=== PATIENT | male | born 1960 | race Two or more races ===

== ENCOUNTER 2018-08-12 16:00 | Outpatient (CLI) | payer OTHER | END 2018-08-12 16:11 | disposition home or self-care (01) | LOC: RAD 16:00 | DX: Z01.811 Encounter for preprocedural respiratory examination (principal) ==

== ENCOUNTER 2018-08-15 09:12 | Outpatient (CLI) | payer OTHER | END 2018-08-15 09:22 | disposition home or self-care (01) | LOC: EKG 09:12 | DX: Z01.810 Encounter for preprocedural cardiovascular examination (principal) ==

== ENCOUNTER → 2018-12-05 | Outpatient (CLI) | payer OTHER | END | disposition home or self-care (01) | LOC: SONOGRAMA 10:59 | DX: E04.2 Nontoxic multinodular goiter (principal) ==

== ENCOUNTER → 2018-12-08 | Outpatient (CLI) | payer OTHER | END | disposition home or self-care (01) | LOC: SONOGRAMA 06:18 | DX: R22.2 Localized swelling, mass and lump, trunk (principal) ==

== ENCOUNTER 2019-01-22 10:05 | Inpatient (IN) | payer OTHER ==
[~2019-01-22] VITALS: Ht 177.8 cm; Wt 63.5 kg
[2019-01-22] MEDS ORDERED: LIPITOR20 MG (10:21)
[2019-01-22] MEDS ORDERED: PROTONIX40 M1 (10:21)
== END 2019-01-25 20:52 | disposition home or self-care (01) | DRG 689 ==
LOC: ER 10:05 → MEDI 16:18
PROVIDERS: ADMIT Internal Medicine
DX: N39.0 Urinary tract infection, site not specified (principal); A41.89 Other specified sepsis; N41.0 Acute prostatitis; K22.10 Ulcer of esophagus without bleeding; E78.49 Other hyperlipidemia; D72.828 Other elevated white blood cell count; E86.0 Dehydration; F17.210 Nicotine dependence, cigarettes, uncomplicated

== ENCOUNTER 2019-04-13 06:35 | Day surgery (SDC) | payer OTHER ==
[~2019-04-13 06:35] MED LIST: LIPITOR20 MG; LIPITOR20 MG PO; PROTONIX40 M1; PROTONIX40 M1 PO
== END 2019-04-13 16:35 | disposition home or self-care (01) ==
LOC: CIR.AMB 06:35
DX: D17.1 Benign lipomatous neoplasm of skin and subcutaneous tissue of trunk (principal)